=== PATIENT | female | born 1995 | race Caucasian/White ===

== ENCOUNTER 2017-07-22 05:25 | Inpatient (IN) ==
--- NOTE | 2017-07-22 06:03 | OB/GYN History & Physical ---
Date of Encounter: 07/22/17 Time of Encounter: 05:46 Assessment and Plan (1) 39 weeks gestation of Current visit: Yes Status: Acute Admit for induction of labor. (2) Positive GBS test Current visit: Yes Status: Acute Begin GBS prophylaxis upon admission. Treat with appropriate antibiotic according to sensitivity report. (3) Obesity affecting in third trimester Current visit: Yes Status: Acute EFW on 07/20/17 revealed an in the 90% and fundal height of 42 cm History of Present Illness Chief complaint: Induction of labor HPI: Ms. Alicia is a 22 year old female at 39w2d who arrives for scheduled induction of labor due to LGA and concern for inadequate pelvis size per Dr. Cotton. Patient reports positive movement, denies leakage of fluid and vaginal bleeding. Carolyne reports some mild pelvic cramping but no significant contraction pain. This is complicated by obesity, anemia, and positive GBS. Blood Type A+ GBS positive Rubella Immune Varicella Immune T. Pall negative HbSAG negative Past Med Surg Social Fam HX - Past Medical History Source: patient Medical history: no medical history Psychiatric history: anxiety - Past Surgical History Surgical History: orthopedic, other (Club feet at , corrective surgery.), other - Social History Smoking Status: Never smoker Smokeless Tobacco Status: No Alcohol use: none Drug use: none Obstetrical History - Pregnancies : 1 Para: 0 Term: 0 : 0 Ab's: 0 Livin Medications and Allergies Melatonin [Melatin] 3 mg PO HS PRN 08/04/16 [History] Ferrous Sulfate [Iron] 325 mg PO BID 01/19/17 [History] Loratadine [Allergy Relief] 10 mg PO DAILY 01/19/17 [History] Pnv No.122/Iron/Folic Acid [ Multi Tablet] 1 each PO DAILY 01/19/17 [ History] 3 Allergy/AdvReac Type Severity Reaction Status Date / Time Penicillins Allergy Hives Verified 04/20/17 09:50 Review of System OB - Nose, mouth, and throat Nose, mouth and throat: as per HPI - Breasts Breasts: as per HPI - Cardiovascular Cardiovascular: as per HPI - Respiratory Respiratory: as per HPI - Gastrointestinal Gastrointestinal: as per HPI - Genitourinary Genitourinary: as per HPI - Integumentary Integumentary: as per HPI - Psychiatric Psychiatric: as per HPI - Endocrine Endocrine: as per HPI Exam - Constitutional Constitutional: well developed, well nourished, no acute distress, obese - Neck Neck exam: full ROM - Lungs Respiratory exam: CTAB - Cardiovascular Cardiovascular exam: RRR, +S1, +S2 - Breasts Breast: bilateral: normal - Abdomen Abdomen: Present: bowel sounds normal, gravid, non tender - Extremities Extremities exam: normal capillary refill, normal inspection, warm - Uterus Uterus exam: Present: normal size - Comments Comments: FHR 150 bpm, moderate variability, +15x15 accels. Variable decel. Occasional contractions noted on monitor. Results All other labs normal.
[2017-07-22] MEDS ORDERED: *HR* Nalbuphine 20 MG/ML AMPUL IVP PRN (06:34)
[2017-07-22] MEDS ORDERED: Naloxone 0.4 MG/ML INJ IVP PRN (06:34)
[2017-07-22] MEDS ORDERED: miSOPROStol 25 MCG TABLET PO PRN (06:34)
[2017-07-22] MEDS ORDERED: Ondansetron 4 MG/2 ML VIAL IVP PRN (06:34)
[2017-07-22] MEDS ORDERED: Famotidine 20 MG/2 ML VIAL IVP PRN (06:34)
[2017-07-22] MEDS ORDERED: Ringers Solution, Lactated 1,000 ML ONE (07:02)
[2017-07-22 08:58] LABS: Basophils % 0.2 %; Eosinophils # 0.3 K/mcL (0.0-0.6); Eosinophils % 3.7 %; Hematocrit 39.7 % (35.3-44.9); Hemoglobin 12.1 g/dL (11.5-15.4); Immature Granulocytes % 0.2 % (0-4); Lymphocytes # 1.5 K/mcL (0.6-4.6); Lymphocytes % 18.3 %; Mean Corpuscular HGB Conc 30.5 g/dL (31.6-35.5); Mean Corpuscular Hemoglobin 24.7 pg (28.0-33.3); Mean Platelet Volume 12.3 fL (9.4-12.4); Monocytes # 0.4 K/mcL (0.0-1.3); Monocytes % 5.3 %; Neutrophils # 5.9 K/mcL (1.6-8.9); Platelet Count 288 K/mcL (140-400); Red Cell Distribution Width 17.3 % (11.5-14.5); Segmented Neutrophils % 72.3 %
[2017-07-22 09:06] LABS: Amphetamine Screen,Urine Negative ng/mL (Cutoff=1000); Barbiturate Screen,Urine Negative ng/mL (Cutoff=200); Benzodiazepines Screen,Urine Negative ng/mL (Cutoff=200); Cannabinoid Screen,Urine Negative ng/mL (Cutoff = 50); Cocaine Screen,Urine Negative ng/mL (Cutoff= 300); Opiate Screen,Urine Negative ng/mL (Cutoff=300); Phencyclidine Screen,Urine Negative ng/mL (Cutoff=25)
--- NOTE | 2017-07-22 09:31 | OB Labor Progress Note ---
Date of Encounter: 07/22/17 Time of Encounter: 09:29 Labor Progress Note - Subjective Subjective: The patient reports feeling contractions. She had spontaneous contractions at the time of her arrival - Vital Signs Vital Signs: Afebrile, vital signs stable - Cervix Cervix: 1/70/-3, vertex - Heart Tones Heart Tones: 130s baseline, CAT 1 - [place]: Irregular every 4-6 minutes on external toco - Interventions Interventions: 39 week IUP for induction of labor, at risk for CPD, positive GBS on vancomycin. - Plan Plan: Cytotec induction of labor for maternal obesity. Agudelo balloon inserted without difficulty with 30 mL sterile fluid. Continue close monitoring
[2017-07-22] MEDS: D5% in 0.45% NACL 1,000 ML IVC SCH ×2 (09:45→18:05)
[2017-07-22] MEDS: Clindamycin 900 MG/50 ML 900 MG/50 ML IV.SOLN IVPB SCH ×2 (09:45→18:05)
--- NOTE | 2017-07-22 15:13 | Anesthesia Evaluation PreOp ---
Date of Encounter: 07/22/17 Time of Encounter: 14:47 - Past History Planned Operation: labor epidural Cardiac History: Denies any Significant Hx Pulmonary History: Former smoker (quit 2 years ago. smoked only occasionally for about a year.) QUALITY TECH History: Seizures (last seizure 5 years ago, no longer on meds.), Other ( anxiety/depression, history of cutting behavior.) Other Medical History: Other ([place]. BMI 41.) Anesthesia History: No Prior Anesthetic Complications, Past Anesthesia (repair of bilateral club foot as . No FHAP.) : Yes Alcohol Use: none Drug use: none Medications and Allergies Melatonin [Melatin] 3 mg PO HS PRN 08/04/16 [History] Ferrous Sulfate [Iron] 325 mg PO BID 01/19/17 [History] Loratadine [Allergy Relief] 10 mg PO DAILY 01/19/17 [History] Pnv No.122/Iron/Folic Acid [ Multi Tablet] 1 each PO DAILY 01/19/17 [ History] 3 Allergy/AdvReac Type Severity Reaction Status Date / Time Penicillins Allergy Hives Verified 04/20/17 09:50 - Meds/Allergy Pre-op Review Medications Reviewed: Yes Allergies Reviewed: Yes Beta Blockers on Current Med List: No Anesthesia Results - Labs 07/22/17 08:41 Anesthesia Exam 122/76, 80, 20, 98%.FHTs 130s. Height: 5'3" Weight: 103 kg NPO (# of Hours): 12 Pain Scale: 3 Pain Scale Used: Numeric (1 - 10) - HEENT Pupil (Motor): Pupils equal, EOMI Mallampati: II Teeth: Normal Oral Opening: Greater than 3 - QUALITY TECH LOC: Oriented QUALITY TECH Motor: Normal RUE, Normal LUE, Normal RLE, Normal LLE, Normal Face QUALITY TECH Sensory: Normal: RUE, LUE, RLE, LLE, Face - Cardiac Rhythm: Regular - Pulmonary Breath Sounds: bilateral Clear Respiratory Effort: Symmetrical Anesthesia Assess/Plan ASA Score: 3 Modified [place] Scale for Level of Consciousness: Cooperative, oriented, and tranquil Anesthetic Plan: Regional Monitoring Plan: Standard Monitors
[2017-07-22] MEDS ORDERED: Bupivacaine-MPF 0.25% 10 ML VIAL EP ONE (15:21)
[2017-07-22] MEDS ORDERED: *HR* FentaNYL (PF) 100 MCG/2 ML VIAL EP ONE (15:21)
[2017-07-22] MEDS ORDERED: Epidural Premix (fent/bupiv) 110 ML EP SCH (15:30)
--- NOTE | 2017-07-22 16:04 | OB Labor Progress Note ---
Date of Encounter: 07/22/17 Time of Encounter: 16:02 Labor Progress Note - Subjective Subjective: The patient reports being comfortable with contractions - Vital Signs Vital Signs: Afebrile, vital signs stable - Cervix Cervix: 3/70/-3, vertex - Heart Tones Heart Tones: 130s baseline with accelerations and occasional variable, CAT 1 - [place]: Contractions irregular on external toco - Interventions Interventions: 39 week IUP with positive GBS receiving clindamycin for induction of labor. Patient has maternal obesity as a risk factor. Fetus not engaged at onset of induction - Plan Plan: Amniotomy with IUPC placed. Augment with Pitocin. Patient high risk for cephalopelvic disproportion and need for delivery
[2017-07-22] MEDS ORDERED: Oxytocin 20 units/ LR 1000 mL 20 UNIT/1,000 ML BAG IVC SCH (16:15)
[2017-07-22] MEDS ORDERED: Metoclopramide 10 MG/2 ML VIAL IVP PRN (19:32)
[2017-07-22] MEDS ORDERED: MetroNIDAZOLE 500 MG/100 ML 500 MG/100 ML BAG IVPB ONE (19:43)
[2017-07-22] MEDS ORDERED: Ringers Solution, Lactated 1,000 ML IVC SCH (19:45)
--- NOTE | 2017-07-22 19:49 | OB Labor Progress Note ---
Date of Encounter: 07/22/17 Time of Encounter: 19:47 Labor Progress Note - Subjective Subjective: The patient is resting in bed - Vital Signs Vital Signs: Afebrile, vital signs stable - Cervix Cervix: 3/70/-3, vertex - Heart Tones Heart Tones: 130s baseline, CAT 1 - [place]: Contractions are every 2-3 minutes, 50-60 mmHg on 6 milliunits of Pitocin - Interventions Interventions: 39 week IUP with trial of labor, failure to progress, failure to descend with arrest at 3 cm, BMI 41, positive GBS status post clindamycin - Plan Plan: Informed consent obtained to proceed with a primary section. Risks and benefits reviewed. Antibiotics have been ordered
[2017-07-22] MEDS ORDERED: Morphine Sulfate/PF 5mg/10mL Vial ONE (19:50)
[2017-07-22] MEDS ORDERED: *HR* Oxytocin 10 UNIT/ML VIAL IM ONE (19:50)
[2017-07-22] MEDS ORDERED: Water for inj. (sterile) 10 ML IV ONE (19:50)
[2017-07-22] MEDS ORDERED: *HR* FentaNYL (PF) 100 MCG/2 ML VIAL ONE (19:50)
[2017-07-22] MEDS ORDERED: EPHEDrine 50 MG/ML VIAL ONE (19:50)
[2017-07-22] MEDS ORDERED: Ondansetron 4 MG/2 ML VIAL ONE (20:45)
[2017-07-22] MEDS ORDERED: Lidocaine -MPF 2% 5 ML VIAL ONE (20:47)
[2017-07-22] MEDS ORDERED: *HR* Promethazine 25 MG/ML VIAL IVP PRN (21:10)
[2017-07-22] MEDS ORDERED: Ondansetron 4 MG/2 ML VIAL IVP ONE (21:10)
[2017-07-22] MEDS ORDERED: Acetaminophen IV 1,000 MG/100 ML INFUS..BTL IVPB ONE (21:11)
--- NOTE | 2017-07-22 21:57 | OB/GYN Procedure Note ---
Section - Date of procedure: 07/22/17 Preop diagnosis: arrest of descent, arrest of dilation, other (LGA fetus) Post-op diagnosis: same Procedure: section, primary low transverse Surgeon: Martha Cotton Estimated blood loss (cc): 800 Was there an medical library assistant present: Yes Supply Teacher: Cici Chavez Anesthesiologist: Jovon Holly Md Psychiatry: Ashwini Connolly Anesthesia Type: Spinal Disposition: L&D Recovery Room Specimens: Placenta, Cord segment - Infant (s) Infant A Delivery Date: 07/22/17 Infant Delivery Time: 21:02 Presentation: vertex Route of delivery: other ( section) Gender: Male Viability: Viable Pounds: 9 Ounces: 3 at 1 minute: 9 at 5 minutes: 9 Placenta: uterine exploration, complete extraction Cord: nuchal cord, 3 umbilical vessels, nuchal reduced - Narrative Narrative: Patient was taken to the operating room and prepped and draped in usual sterile fashion after spinal was placed. EPCDs were placed. Timeout was completed. Anesthesia was tested to be adequate. A Pfannenstiel skin incision was made with a scalpel and sharply dissected down to the fascia. The fascia was incised in the midline and extended bilaterally with scissors. 2 straight Codie clamps were placed on the inferior fascial edge and the fascia was bluntly and sharply dissected away from the rectus muscles. This was repeated superiorly. The rectus muscles were then bluntly and sharply bissected in the midline. Peritoneum was bluntlyly entered and extended superiorly and inferiorly. Bladder blade was placed to protect the bladder. Vesicouterine peritoneum was incised and reflected inferiorly. Bladder blade was replaced to protect the bladder. A low transverse incision was then made with a scalpel and sharply dissected down to the amnion. This was then bluntly extended bilaterally. There was brisk bleeding from the placenta which was anterior. The amnion was then bluntly entered. This was followed by the vertex delivery of a vigorous male weighing 9#3oz, with Apgars of 9 at 1 minute and 9 at 5 minutes. The infant was suctioned on the operating field, cord was clamped and cut after a delay, and the infant was handed to the nursery care team. Placenta was extracted intact. Uterine cavity was digitally inspected and then wiped clean with a moist lap sponge. Clamps were placed on the uterine angles and the uterine incision was closed using 0 Vicryl suture in a running locking fashion. A second imbricating layer completed the uterine closure. Good hemostasis was achieved. Gloves were changed. Tubes and ovaries were inspected and found to be grossly normal. The abdomen was irrigated copiously with sterile water. Peritoneal edges and rectus muscles were inspected and hemostasis achieved. The fascia was then closed using an 0 PDS loop in a running, nonlocking fashion. Subcutaneous tissue was irrigated with sterile water and good hemostasis was achieved. Skin was closed with 4-0 Monocryl in a subcuticular fashion. All sponge and instrument counts were correct at the end of the procedure. The Agudelo was noted to be draining clear yellow urine at the end of the procedure. The patient was taken to the recovery room in stable condition.
--- NOTE | 2017-07-22 23:05 | Anesthesia Evaluation Post Op ---
Date of Encounter: 07/22/17 Time of Encounter: 22:56 - Vital Signs Vital Signs: VSS throughout PACU stay. - Lungs Lungs: Clear Ascult./Percussion - Airway Airway: Non-obstructed - Cardiovascular Regular Rate - Mental Status Mental Status: Alert & Oriented, Answers Appropriately - Pain Pain Scale: 0 Pain Scale used: Numeric (1 - 10) - Nausea Vomiting Nausea Vomiting: Not Present - Hydration Hydration: NPO, Agudelo catheter - Discharge PostOp Status: Transfer Patient to floor
[2017-07-23] MEDS ORDERED: Oxytocin 20 units/ LR 1000 mL 20 UNIT/1,000 ML BAG IVC SCH (01:19)
[2017-07-23] MEDS ORDERED: Ondansetron 4 MG/2 ML VIAL IVP PRN (01:19)
[2017-07-23] MEDS ORDERED: Simethicone 80 MG TAB.CHEW PO PRN (01:19)
[2017-07-23] MEDS ORDERED: Sennosides 8.6 MG TABLET PO PRN (01:19)
[2017-07-23] MEDS ORDERED: Metoclopramide 10 MG/2 ML VIAL IVP PRN (01:19)
[2017-07-23] MEDS ORDERED: Clindamycin 900 MG/50 ML 900 MG/50 ML IV.SOLN IVPB ONE (02:00)
[2017-07-23 07:45] LABS: Basophils % 0.1 %; Eosinophils % 0.1 %; Hematocrit 30.1 % (35.3-44.9); Immature Granulocytes % 0.4 % (0-4); Immature Platelets 9.8 % (1.1-6.1); Lymphocytes # 1.1 K/mcL (0.6-4.6); Lymphocytes % 8.1 %; Mean Corpuscular HGB Conc 30.9 g/dL (31.6-35.5); Mean Corpuscular Hemoglobin 25.1 pg (28.0-33.3); Mean Corpuscular Volume 81.1 fL (83.0-100.0); Mean Platelet Volume 11.9 fL (9.4-12.4); Monocytes # 0.6 K/mcL (0.0-1.3); Monocytes % 4.3 %; Neutrophils # 11.8 K/mcL (1.6-8.9); Platelet Count 241 K/mcL (140-400); Red Blood Count 3.71 M/mcL (3.82-4.97); Red Cell Distribution Width 17.2 % (11.5-14.5)
[2017-07-23 07:59] LABS: Hemoglobin 9.3 g/dL (11.5-15.4)
[2017-07-23] MEDS: Ibuprofen 600 MG TABLET PO SCH ×3 (08:25→20:19)
[2017-07-23] MEDS: Prenatal Vit/FA 1 EACH TABLET PO SCH ×2 (08:26→12:20)
--- NOTE | 2017-07-23 08:38 | OB/GYN Progress Note ---
Date of Encounter: 07/23/17 Time of Encounter: 08:35 - Assessment and Plan (1) Delivery by section of full-term infant Current Visit: Yes Status: Acute Continue routine care Dangle and ambulate today Remove pickard catheter today Advance diet as tolerated PO pain meds as needed assistance Plan for discharge tomorrow Subjective - Subjective Interval history: Pt reports pain well controlled this morning. Has not started PO meds yet as she hasn't needed them. Tolerating advancing diet. Voiding through catheter. well. Has not had a bowel movement since surgery. Lochia scant. Patient reports: appetite normal, pain well controlled [place]: doing well, nursing well Objective - Vital Signs Latest vital signs: Vital Signs Temp Pulse Resp BP Pulse Ox 07/23/17 03:30 98.4 F 92 16 110/66 95 07/23/17 02:35 98.1 F 84 16 112/76 98 07/23/17 01:30 97.5 F L 108 16 114/76 97 07/23/17 01:05 97.9 F 112 14 117/79 96 07/23/17 00:30 97.9 F 100 16 117/80 97 Intake and Output 07/22/17 07/23/17 07/23/17 23:59 07:59 15:59 Intake Total 1000 / 1000 50 / 50 Output Total 400 / 400 Balance 1000 / 1000 -350 / -350 Intake: IV Fluids 1000 / 1000 D5% And 0.45% Nacl 1000 Ml Bag 1000 / 1000 1,000 ML @ 125 mls/hr IVC .Q8H [facility], [facility] Rx#:[id number] Oral 50 / 50 Output: Catheter 400 / 400 - Exam Lungs: bilateral: normal Chest: Normal S1, Normal S2 Extremities: Present: normal Abdomen: Present: normal appearance, soft Incision: Present: normal, intact, dressed Uterus: Present: normal, firm Fundal Height: 1 (below) - Labs Labs: Laboratory Results - last 24 hr 07/22/17 07/22/17 07/23/17 08:41 08:41 07:36 WBC 8.1 13.6 H D RBC 4.90 3.71 L Hgb 12.1 9.3 L D Hct 39.7 30.1 L MCV 81.0 L 81.1 L MCH 24.7 L 25.1 L MCHC 30.5 L 30.9 L RDW 17.3 H 17.2 H Plt Count 288 241 MPV 12.3 11.9 Immature Gran % 0.2 0.4 Seg Neutrophils % 72.3 87.0 Lymphocytes % 18.3 8.1 Monocytes % 5.3 4.3 Eosinophils % 3.7 0.1 Basophils % 0.2 0.1 Neutrophils # 5.9 11.8 H Lymphocytes # 1.5 1.1 Monocytes # 0.4 0.6 Eosinophils # 0.3 0.0 Basophils # 0.0 0.0 Immature Plt Fraction 9.8 H Urine Opiates Screen Negative Ur Barbiturates Screen Negative Ur Phencyclidine Scrn Negative Ur Amphetamines Screen Negative U Benzodiazepines Scrn Negative Urine Cocaine Screen Negative U Marijuana (THC) Screen Negative
[2017-07-23] MEDS ORDERED: Lanolin 7 G OINT...G. TP PRN (16:02)
[2017-07-23] MEDS: *HR* OxyCODONE/APAP 5/325 TABLET PO PRN (20:19)
[2017-07-24] MEDS: Ibuprofen 600 MG TABLET PO SCH ×2 (02:02→09:12)
[2017-07-24] MEDS: *HR* OxyCODONE/APAP 5/325 TABLET PO PRN (05:38)
[2017-07-24 08:34] VITALS: BP 108/73
--- NOTE | 2017-07-24 09:04 | Discharge Summary ---
Date of Encounter: 07/24/17 Time of Encounter: 09:01 - Discharge Diagnosis (1) Delivery by section of full-term infant Priority: Primary Status: Acute Comments: S/P ceserean delivery day 1 Pain well controlled Passing flatus; tolerating regular diet Lochia light and without clots Voiding normally Breast feeding well; pumping and feeding pumped milk VSS Discharge home today (2) Anemia during puerperium Priority: Secondary Status: Acute Comments: VSS, asymptomatic Discharge home with iron (3) Breast feeding status of mother Priority: Secondary Status: Acute Comments: Pumping; will discharge home with breast pump Rx. - Discharge Medications Prescriptions: Clindamycin [Cleocin] 300 mg PO Q6HR 7 Days #56 capsule Ibuprofen [Motrin] 600 mg PO Q6HR PRN #60 tablet PRN Reason: Cramping/mild pain OxyCODONE/APAP 5/325 [Percocet 5/325 MG] 1 each PO Q6HR PRN 7 Days #28 tablet PRN Reason: Moderate pain 4-6 Docusate [Colace] 100 mg PO BID PRN #20 capsule PRN Reason: Constipation Ferrous Sulfate 325 mg PO DAILY #30 tablet metroNIDAZOLE [Flagyl] 500 mg PO BID #14 tablet Home Medications: Loratadine [Allergy Relief] 10 mg PO DAILY 01/19/17 [History] Pnv No.122/Iron/Folic Acid [ Multi Tablet] 1 each PO DAILY 01/19/17 [ History] Breast Pump [BREAST PUMP] 1 each .ROUTE AD #1 each 07/24/17 [Rx] Clindamycin [Cleocin] 300 mg PO Q6HR 7 Days #56 capsule 07/24/17 [Rx] Docusate [Colace] 100 mg PO BID PRN #20 capsule 07/24/17 [Rx] Ferrous Sulfate 325 mg PO DAILY #30 tablet 07/24/17 [Rx] Ibuprofen [Motrin] 600 mg PO Q6HR PRN #60 tablet 07/24/17 [Rx] Lanolin [Lansinoh] 1 appl TP TID PRN oint...g. 07/24/17 [Rx] OxyCODONE/APAP 5/325 [Percocet 5/325 MG] 1 each PO Q6HR PRN 7 Days #28 tablet [Rx] Simethicone [Gas-X] 80 mg PO TID PRN tab.chew 07/24/17 [Rx] metroNIDAZOLE [Flagyl] 500 mg PO BID #14 tablet 07/24/17 [Rx] Allergies/Adverse Reactions: 3 Allergy/AdvReac Type Severity Reaction Status Date / Time Penicillins Allergy Hives Verified 04/20/17 09:50 Data Procedures and tests throughout hospitalization: Laboratory Tests 07/22/17 07/22/17 07/23/17 08:41 08:41 07:36 WBC 8.1 13.6 H D RBC 4.90 3.71 L Hgb 12.1 9.3 L D Hct 39.7 30.1 L MCV 81.0 L 81.1 L MCH 24.7 L 25.1 L MCHC 30.5 L 30.9 L RDW 17.3 H 17.2 H Plt Count 288 241 MPV 12.3 11.9 Immature Gran % 0.2 0.4 Seg Neutrophils % 72.3 87.0 Lymphocytes % 18.3 8.1 Monocytes % 5.3 4.3 Eosinophils % 3.7 0.1 Basophils % 0.2 0.1 Neutrophils # 5.9 11.8 H Lymphocytes # 1.5 1.1 Monocytes # 0.4 0.6 Eosinophils # 0.3 0.0 Basophils # 0.0 0.0 Immature Plt Fraction 9.8 H Urine Opiates Screen Negative Ur Barbiturates Screen Negative Ur Phencyclidine Scrn Negative Ur Amphetamines Screen Negative U Benzodiazepines Scrn Negative Urine Cocaine Screen Negative U Marijuana (THC) Screen Negative Date of admission: 07/22/17 05:25 Primary care physician: Jose Schuler MD Discharging clinician: Jazmine Sales Anticipated date of discharge: 07/24/17 - Patient Status Disposition: Home, Self-Care Condition: Good Functional capacity at discharge: independent ambulation Overall status at discharge: patient is progressing back to baseline - Discharge Instructions Follow Up With: Jose Schuler MD [Primary Care Provider] - Martha Cotton MD [Partnered Physician] - - Diet and Activity Activity: increase activity as tolerated Diet: regular diet Hospital Course Reason for admission: induction of labor, IUP at term Delivery: Episiotomy: none Laceration: none Other procedures: none complications: none Discharge diagnosis: IUP at term delivered baby: male Time Attestation: Total time spent providing and/or coordinating discharge services: Time Spent: Less than 30 minutes - VTE Documentation of Mechanical Device: Intermittent pneumatic compression device Exam - Constitutional Vitals: Temp Pulse Resp BP Pulse Ox 98.8 F 95 12 108/73 95 07/24/17 08:29 07/24/17 08:29 07/24/17 08:29 07/24/17 08:29 07/24/17 08:29 General appearance IM: cooperative, A&O X 3, pleasant - Respiratory Respiratory exam: Present: CTAB - Cardiovascular Cardiovascular exam IM: Present: RRR, +S1, +S2 - GI/Abdominal GI/Abdominal exam IM: normal bowel sounds, soft Incision: normal, dry (sandra dressing C/D/I), intact - Rectal Rectal exam: deferred - Uterine Tone: Firm Uterus Position: 1 Finger Below Umbilicus, Midline - Extremities Exam Extremities exam IM: Present: normal capillary refill, normal inspection, pedal edema (1+), radial pulses palpable and symmetrical - Neurological Exam Neurological exam: alert, oriented X3
[2017-07-24] MEDS: Prenatal Vit/FA 1 EACH TABLET PO SCH (09:13)
== END 2017-07-24 13:30 | disposition home or self-care (01) | DRG 540 ==
LOC: 1NENULAB 05:25 → 1NENUOBS 07-23 00:54
PROVIDERS: ADMIT Obstetrics & Gynecology; ATTEND Obstetrics & Gynecology